=== PATIENT | male | born 1985 | race Caucasian/White ===

== ENCOUNTER 2017-01-08 19:43 | Emergency (ER) | payer OTHER ==
--- NOTE | 2017-01-08 19:59 | Emergency Department Record ---
History of Present Illness - General Chief Complaint: Ankle/Foot Injury Stated Complaint: INJURY TO RT ANKLE Time Seen by Provider: 01/08/17 19:49 Source: Patient Mode of Arrival: Ambulatory Limitations: No limitations - History of Present Illness Initial Comments: 31 yo male presents to ED for evaluation of worsening swelling and bruising to the right ankle following an injury approximately 2 weeks ago. Patient reports that he has been able to gradually ambulate on the foot after several days. Patient denies other injury, denies numbness, tingling, or lower extremity weakness symptoms. Patient denies health problems at his baseline. MD Complaint: Ankle injury Onset/Timin -: Week(s) Injury: Ankle: Right Type of Injury: Inversion Place: Work Severity: Moderate Improves With: Nothing Worsens With: Weight bearing - Related Data Home Medications Medication Instructions Recorded Confirmed Last Taken No Home Med [NO HOME MEDS] 01/08/17 01/08/17 Unknown Allergies Allergy/AdvReac Type Severity Reaction Status Date / Time No Known Drug Allergies Allergy Verified 01/08/17 19:49 Review of Systems Constitutional: Denies: Chills, Fever, Malaise, Night sweats Eyes: Denies: Eye discharge, Eye pain ENT: Denies: Congestion, Ear pain, Epistaxis Respiratory: Denies: Cough, Dyspnea Cardiovascular: Denies: Chest pain, Dyspnea on exertion, Palpitations Endocrine: Denies: Fatigue, Heat or cold intolerance Gastrointestinal: Denies: Abdominal pain, Nausea, Vomiting Genitourinary: Denies: Incontinence, Retention Musculoskeletal: Reports: Arthralgia, Joint swelling. Denies: Back pain, Gout Skin: Reports: Bruising Neurological: Denies: Abnormal gait, Confusion, Seizure Psychiatric: Denies: Anxiety Hematological/Lymphatic: Denies: Anemia, Blood Clots Physical Exam - General General Appearance: Alert, Oriented x3, Cooperative, No acute distress Limitations: No limitations - Head Head exam: Atraumatic, Normocephalic, Normal inspection Head exam detail: negative: Abrasion, Contusion, Malik's sign, General tenderness, Hematoma, Laceration - Eye Eye exam: Normal appearance. negative: Conjunctival injection, Periorbital swelling, Periorbital tenderness, Scleral icterus - ENT Ear exam: negative: Auricular hematoma, Auricular trauma Nasal Exam: negative: Active bleeding, Discharge, Dried blood, Foreign body Mouth exam: negative: Drooling, Laceration, Muffled voice, Tongue elevation - Neck Neck exam: Normal inspection. negative: Meningismus, Tenderness - Respiratory Respiratory exam: Normal lung sounds bilaterally. negative: Rales, Respiratory distress, Rhonchi, Stridor - Cardiovascular Cardiovascular Exam: Regular rate, Normal rhythm, Normal heart sounds Peripheral Pulses: 3+: Dorsalis Pedis (R) - GI/Abdominal GI/Abdominal exam: Soft. negative: Rebound, Rigid, Tenderness - Rectal Rectal exam: Deferred - exam: Deferred - Extremities Extremities exam: Pedal edema, Tenderness, Other (STS and ecchymosis to the right ankle and foot laterally, strong DPP, mild TTP over the lateral ankle as well). negative: Calf tenderness - Back Back exam: Denies: CVA tenderness (R), CVA tenderness (L) - Neurological Neurological exam: Alert, Normal gait, Oriented X3 - Psychiatric Psychiatric exam: Normal affect, Normal mood - Skin Skin exam: Normal color. negative: Abrasion Type of lesion: negative: abrasion Course - Reevaluation(s) Reevaluation #1: 01/08/17 20:18 Right ankle: No acute fracture, STS Right foot: No acute process Patient was updated on his radiograph results, will place in an air splint with instructions for follow-up in 3-5 days as directed. Disposition Disposition: Discharge Clinical Impression: Ankle sprain Qualifiers: Encounter type: subsequent encounter Involved ligament of ankle: calcaneofibular ligament Laterality: right Qualified Code(s): S93.411D - Sprain of calcaneofibular ligament of right ankle, subsequent encounter Disposition: Home, Self-Care Condition: (2) Stable Instructions: Ankle Sprain (ED) Additional Instructions: Return to ED if your symptoms worsen or if you have any concerns. Follow-up with your family doctor in 1 week as needed. Air splint as directed. Forms: Patient Portal Access Time of Disposition: 19:59 Quality - Quality Measures Quality Measures: N/A - Blood Pressure Screening Does Patient Have Any of the Following: No Blood Pressure Classification: Pre-Hypertensive BP Reading Systolic Measurement: 128 Diastolic Measurement: 76 Screening for High Blood Pressure: < Pre-Hypertensive BP, F/U Documented > [ [id number]] Pre-Hypertensive Follow-up Interventions: Referral to alternative/primary care provider.
--- NOTE | 2017-01-09 13:40 | RADIOLOGY REPORT ---
EXAM: RIGHT ANKLE HISTORY: PATIENT STEPPED IN POT HOLE WHILE RUNNING AT WORK, TWISTED RIGHT ANKLE , SWOLLEN AND BRUISED. TECHNIQUE: Three views of the right ankle were obtained. Comparison: None. Encounter: Initial. FINDINGS: Some soft tissue swelling is seen particularly laterally. Minor spurring at the tips of the medial and lateral malleoli. No definite fracture or dislocation of the right ankle evident. IMPRESSION: 1. SOME SOFT TISSUE SWELLING PARTICULARLY LATERALLY. 2. NO DEFINITE FRACTURE IDENTIFIED. JOB NUMBER: [id number] MTDD
--- NOTE | 2017-01-09 13:42 | RADIOLOGY REPORT ---
EXAM: RIGHT FOOT HISTORY: PATIENT STEPPED IN A POT HOLE WHILE RUNNING AT WORK WITH PAIN AND SWELLING RIGHT FOOT AND ANKLE. TECHNIQUE: Three views of the right foot were obtained. Comparison: None. Encounter: Initial. FINDINGS: Very minor degenerative change at the first MTP joint. No definite fracture or dislocation of the right foot identified. IMPRESSION: NO FRACTURE OF THE RIGHT FOOT IDENTIFIED. JOB NUMBER: [id number] MTDD
== END 2017-01-08 20:29 | disposition home or self-care (01) ==
LOC: ER 19:43
DX: S93.411A Sprain of calcaneofibular ligament of right ankle, initial encounter (principal); X50.0XXA Overexertion from strenuous movement or load, initial encounter; Y99.0 Civilian activity done for income or pay
CPT/HCPCS: 99283